=== PATIENT | male | born 1985 | race Hispanic/Latino ===

== ENCOUNTER 2017-01-23 10:26 | Observation (INO) | payer MEDICAID ==
[2017-01-22 10:18] VITALS: BMI 22.5
[2017-01-23] MEDS ORDERED: Liquid Adhesive TOP ONE (11:02)
[2017-01-23] MEDS ORDERED: Absorbable Gelatin Sponge Size 100 ONE (11:02)
[2017-01-23] MEDS ORDERED: Thrombin Topical 5,000 IU Spray Kit ONE (11:02)
[2017-01-23] MEDS ORDERED: Bupivacaine 0.5% Inj(30mL) ONE (11:02)
[2017-01-23] MEDS ORDERED: MethylPREDNISolone Depo 40 mg/ml Inj ONE (11:02)
[2017-01-23] MEDS ORDERED: Propofol 10 mg/ml Inj (20 ML) ONE ×5 (11:11→17:26)
[2017-01-23] MEDS ORDERED: Rocuronium 10 mg/ml (5 ml) ONE ×2 (11:25→15:41)
[2017-01-23] MEDS ORDERED: Midazolam 2 MG/2 ML VIAL ONE ×2 (11:25→14:13)
[2017-01-23] MEDS ORDERED: Succinylcholine 200 mg/10 ml Inj IV ONE ×2 (11:25→14:14)
[2017-01-23] MEDS ORDERED: Lactated Ringer's 1,000 ML IV ONE ×4 (11:40→20:45)
[2017-01-23] MEDS ORDERED: Desflurane Inhalation Anesthetic Liq (240 ml) ONE (14:15)
[2017-01-23] MEDS ORDERED: ePHEDrine 50 mg/ml Inj ONE ×2 (15:25→16:43)
[2017-01-23] MEDS ORDERED: Dexamethasone 4 mg/1 ml ONE (15:44)
[2017-01-23] MEDS ORDERED: Vancomycin 1 g Inj IVPB ONE (16:30)
[2017-01-23] MEDS ORDERED: Neostigmine Methylsulfate 2 MG/2 ML ML IV ONE (17:43)
[2017-01-23] MEDS ORDERED: HYDROmorphone 0.5 mg/0.5 ml ISec ONE ×2 (18:23→18:32)
[2017-01-23] MEDS ORDERED: Lactated Ringer's 1,000 ML IV SCH (18:28)
[2017-01-23] MEDS ORDERED: HYDROmorphone 0.5 mg/0.5 ml ISec IVP PRN (18:28)
--- NOTE | 2017-01-23 19:04 | CP.PCM.HP ---
History of Present Illness - History of Present Illness History of Present Illness: Hospitalist Admission H&P (Patient was seen and examined in the PAC Unit at 6: 40 PM 01/23/17) PMD: Dr. Cuevas Neurosurgeon : Dr. Padilla CODE STATUS: FULL CODE. Does NOT have a Living Will/Advance Directive. Designates Glen Joshi as his Health Care Proxy. CHIEF COMPLAINT: S/P Lumbar 4-5 Fusion 31 year old male (PMHx Depression) who is s/p Anterior Lumbar Interobody Fusion of L4-L5 by Neurosurgeon Dr. Padilla on 01/23/17. I was contacted by Dr. Padilla 's faculty i on call medical assistant Katherin for admission to Hospitalist Service. Currently upon FULL ROS there is NO chest pain, NO palpitations, NO SOB/Cough/ Wheezing, NO n/v/d/c (no recent black bloody stools), (+) Abdominal pain LLQ at the surgical site, NO new changes in vision/eye pain, NO new changes in hearing/ ear pain, NO edema, NO headache, (+) Right Big Toe Numbness PMHx: Depression PSHx: L4-L5 Laminectomy 2016, Shoulder Shoulder 2016, Proxmil Left Tibia Osteomyelitis ALL: NKDA or Food Allergies Medications: Cymbalta 120 mg PO 1x/day Social History: Physical Exercise Intructor, Lives Alone, NO tobacco, NO alcohol , NO illicit drugs Family History: Dad (Alcoholism), Mom (Healthy) Present on Admission - Present on Admission Any Indicators Present on Admission: Yes History of DVT/PE: No History of Uncontrolled Diabetes: No Urinary Catheter: No Review of Systems - Review of Systems Review of Systems: PLease see above Past Patient History - Past Medical History & Family History Past Medical History?: Yes Pertinent Family History: Please see above - Past Social History Smoking Status: Never Smoked - CARDIAC Hx Cardiac Disorders: No - PULMONARY Hx Respiratory Disorders: No - NEUROLOGICAL Hx Neurological Disorder: No - HEENT Hx HEENT Problems: No - RENAL Hx Chronic Kidney Disease: No - ENDOCRINE/METABOLIC Hx Endocrine Disorders: No - HEMATOLOGICAL/ONCOLOGICAL Hx Blood Disorders: No Hx Blood Transfusions: No - INTEGUMENTARY Hx Dermatological Problems: No - MUSCULOSKELETAL/RHEUMATOLOGICAL Hx Musculoskeletal Disorders: Yes Hx Back Pain: Yes Hx Falls: No Hx Osteomyelitis: Yes Hx Unsteady Gait: No - GASTROINTESTINAL Hx Gastrointestinal Disorders: No - GENITOURINARY/GYNECOLOGICAL Hx Genitourinary Disorders: No - PSYCHIATRIC Hx Psychophysiologic Disorder: Yes Hx Depression: Yes - SURGICAL HISTORY Hx Surgeries: Yes Other/Comment: discectomy;left leg surgery - ANESTHESIA Hx Anesthesia: Yes Hx Anesthesia Reactions: No Hx Malignant Hyperthermia: No Has any member of the family had a problem w/ anesthesia?: No Meds Allergies/Adverse Reactions: Allergies Allergy/AdvReac Type Severity Reaction Status Date / Time No Known Allergies Allergy Verified 01/22/17 09:27 Physical Exam - Constitutional Appears: Non-toxic, No Acute Distress - Head Exam Head Exam: ATRAUMATIC, NORMAL INSPECTION, NORMOCEPHALIC - Eye Exam Eye Exam: EOMI, Normal appearance, PERRL Pupil Exam: NORMAL ACCOMODATION, PERRL - ENT Exam ENT Exam: Normal Exam, Normal External Ear Exam, Normal Oropharynx Additional comments: Oral Mucosa and Nasal Turbinates are dry. - Neck Exam Neck exam: Positive for: Normal Inspection Additional comments: NO lymphadenopathy - Respiratory Exam Respiratory Exam: Clear to Auscultation Bilateral, NORMAL BREATHING PATTERN Additional comments: CTA B/L, NO R/R/W - Cardiovascular Exam Cardiovascular Exam: REGULAR RHYTHM, +S1, +S2 Additional comments: NS1 and NS2, NO M/R/G - GI/Abdominal Exam Additional comments: BS in all 4 quadrants are reduced Soft ND NO HSM Tenderness to palpation around surgical site LLQ but NO guarding/rebound tenderness - Extremities Exam Additional comments: NO edema Pulses are strong and equal in B/L UE and LE (Confirmed pulse in Right LE with Doppler) Capillary Refill is 2 seconds The Right Foot Toes appears to be slightly colder than the Left Foot Toes NO cyanosis - Neurological Exam Neurological exam: CN II-XII Intact Results - Vital Signs Recent Vital Signs: Last Vital Signs Temp 98.1 F 01/23/17 11:30 Pulse 61 01/23/17 11:30 Resp 18 01/23/17 11:30 BP 126/74 01/23/17 11:30 Pulse Ox 100 01/23/17 11:30 - Labs Labs: Laboratory Results - last 24 hr 01/23/17 01/23/17 11:09 11:16 Blood Type O POSITIVE Blood Type Confirm O POSITIVE Antibody Screen Negative BBK History Checked No verified bt Assessment & Plan (1) S/P spinal fusion Assessment and Plan: S/P Anterior Lumbary Interbody Fusion L4-L5 Dilaudid ALTO SINGER as per Neurosurgery LR at 100 ml/hour Neurosurgery Dr. Padilla Status: Acute (2) History of depression Assessment and Plan: Follows with Dr. Cuevas as an outpatient States he is on Cymbalta 120 mg PO 1x/day and is NO longer taking Xanax or Wellbutrin Status: Acute (3) Prophylactic measure Assessment and Plan: Protonix 40 mg IV 1x/day for GI Prophylaxis Bilateral SCDs for DVT Prophylaxis (NO anticoagulation as per Neurosurgery) Gluten Free Regular Diet Status: Acute
[2017-01-23 20:10] LABS: BASO % 0.1 % (0.0-2.0); EOS % 0.1 % (0.0-4.0); HEMOGLOBIN 13.4 g/dL (12.0-18.0); LYMPH # 0.5 K/uL (1.0-4.3); LYMPH % 4.1 % (20.0-40.0); MEAN CELL VOLUME 85.1 fl (80.0-94.0); MEAN CORPUSCULAR HEMOGLOBIN 27.1 pg (27.0-31.0); MEAN CORPUSCULAR HGB CONC 31.9 g/dL (33.0-37.0); MEAN PLATELET VOLUME 9.8 fl (7.2-11.7); MONO # 0.2 K/uL (0.0-0.8); MONO % 1.4 % (0.0-10.0); NEUT # 12.5 K/uL (1.8-7.0); NEUT % 94.3 % (50.0-75.0); PLATELET COUNT 171 K/uL (130-400); RBC 4.94 Mil/uL (4.40-5.90); RED CELL DISTRIBUTION WIDTH 13.5 % (11.5-14.5); WHITE BLOOD COUNT 13.3 K/uL (4.8-10.8)
[2017-01-23 20:23] LABS: ALB/GLOB RATIO 1.3 (1.0-2.1); ALBUMIN 3.6 g/dL (3.5-5.0); ALT/SGPT 46 U/L (21-72); AST/SGOT 34 U/L (17-59); BLOOD UREA NITROGEN 15 mg/dl (9-20); GFR AFRICAN-AMERICAN > 60; GFR NON-AFRICAN AMERICAN > 60
[2017-01-23 21:21] LABS: HYPOCHROMIC SLIGHT; LYMPHOCYTE 5 % (20-50); MONOCYTE 3 % (0-10); NEUTROPHIL 92 % (42-75); PLATELET ESTIMATE NORMAL (NORMAL); TOTAL CELLS COUNTED 100
[2017-01-23 21:22] LABS: LARGE PLATELETS PRESENT
[2017-01-24 05:58] LABS: HEMOGLOBIN 12.6 g/dL (12.0-18.0); LYMPH # 0.6 K/uL (1.0-4.3); MEAN CELL VOLUME 84.1 fl (80.0-94.0); MEAN CORPUSCULAR HEMOGLOBIN 27.7 pg (27.0-31.0); MEAN CORPUSCULAR HGB CONC 32.9 g/dL (33.0-37.0); MEAN PLATELET VOLUME 10.1 fl (7.2-11.7); MONO # 0.6 K/uL (0.0-0.8); MONO % 4.9 % (0.0-10.0); NEUT # 11.7 K/uL (1.8-7.0); NEUT % 90.1 % (50.0-75.0); PLATELET COUNT 169 K/uL (130-400); RBC 4.53 Mil/uL (4.40-5.90); RED CELL DISTRIBUTION WIDTH 13.2 % (11.5-14.5)
[2017-01-24 06:03] LABS: ALB/GLOB RATIO 1.3 (1.0-2.1); ALBUMIN 3.3 g/dL (3.5-5.0); ALT/SGPT 43 U/L (21-72); AST/SGOT 35 U/L (17-59); BLOOD UREA NITROGEN 14 mg/dl (9-20); CALCIUM 8.1 mg/dL (8.4-10.2); GFR AFRICAN-AMERICAN > 60; GFR NON-AFRICAN AMERICAN > 60
[2017-01-24] MEDS: Lactated Ringer's 1,000 ML IV SCH ×2 (07:03→07:52)
[2017-01-24 08:42] VITALS: RESP 20
[2017-01-24] MEDS ORDERED: Oxycodone/Acetaminophen 5/325 mg Tab PO PRN (08:48)
--- NOTE | 2017-01-24 10:17 | CP.PCM.DIS ---
Provider - Provider Date of Admission: 01/23/17 18:41 Attending physician: Garry Ontiveros MD Primary care physician: Abhi Padilla MD Time Spent in preparation of Discharge (in minutes): 30 Hospital Course - Lab Results Lab Results: Most Recent Lab Values WBC 13.0 K/uL (4.8-10.8) H 01/24/17 04:45 RBC 4.53 Mil/uL (4.40-5.90) 01/24/17 04:45 Hgb 12.6 g/dL (12.0-18.0) 01/24/17 04:45 Hct 38.1 % (35.0-51.0) 01/24/17 04:45 MCV 84.1 fl (80.0-94.0) 01/24/17 04:45 MCH 27.7 pg (27.0-31.0) 01/24/17 04:45 MCHC 32.9 g/dL (33.0-37.0) L 01/24/17 04:45 RDW 13.2 % (11.5-14.5) 01/24/17 04:45 Plt Count 169 K/uL (130-400) 01/24/17 04:45 MPV 10.1 fl (7.2-11.7) 01/24/17 04:45 Neut % (Auto) 90.1 % (50.0-75.0) H 01/24/17 04:45 Lymph % (Auto) 5.0 % (20.0-40.0) L 01/24/17 04:45 Spink % (Auto) 4.9 % (0.0-10.0) 01/24/17 04:45 Eos % (Auto) 0.0 % (0.0-4.0) 01/24/17 04:45 Baso % (Auto) 0.0 % (0.0-2.0) 01/24/17 04:45 Neut # 11.7 K/uL (1.8-7.0) H 01/24/17 04:45 Lymph # 0.6 K/uL (1.0-4.3) L 01/24/17 04:45 Spink # 0.6 K/uL (0.0-0.8) 01/24/17 04:45 Eos # 0.0 K/uL (0.0-0.7) 01/24/17 04:45 Baso # 0.0 K/uL (0.0-0.2) 01/24/17 04:45 Neutrophils % (Manual) 92 % (42-75) H 01/23/17 20:55 Lymphocytes % (Manual) 5 % (20-50) L 01/23/17 20:55 Monocytes % (Manual) 3 % (0-10) 01/23/17 20:55 Platelet Estimate Normal (NORMAL) 01/23/17 20:55 Large Platelets Present 01/23/17 20:55 Hypochromasia (manual) Slight 01/23/17 20:55 Sodium 137 mmol/l (132-148) 01/24/17 04:45 Potassium 4.4 MMOL/L (3.6-5.0) 01/24/17 04:45 Chloride 100 mmol/L (98-107) 01/24/17 04:45 Carbon Dioxide 30 mmol/L (22-30) 01/24/17 04:45 Anion Gap 12 (10-20) 01/24/17 04:45 BUN 14 mg/dl (9-20) 01/24/17 04:45 Creatinine 1.0 mg/dL (0.8-1.5) 01/24/17 04:45 Est GFR ( Amer) > 60 01/24/17 04:45 Est GFR (Non-Af Amer) > 60 01/24/17 04:45 Random Glucose 106 mg/dL (75-110) 01/24/17 04:45 Calcium 8.1 mg/dL (8.4-10.2) L 01/24/17 04:45 Total Bilirubin 0.7 mg/dl (0.2-1.3) 01/24/17 04:45 AST 35 U/L (17-59) 01/24/17 04:45 ALT 43 U/L (21-72) 01/24/17 04:45 Alkaline Phosphatase 46 U/L (38-126) 01/24/17 04:45 Total Protein 5.9 G/DL (6.3-8.2) L 01/24/17 04:45 Albumin 3.3 g/dL (3.5-5.0) L 01/24/17 04:45 Globulin 2.6 gm/dL (2.2-3.9) 01/24/17 04:45 Albumin/Globulin Ratio 1.3 (1.0-2.1) 01/24/17 04:45 Blood Type O POSITIVE 01/23/17 11:09 Blood Type Confirm O POSITIVE 01/23/17 11:16 Antibody Screen Negative 01/23/17 11:09 BBK History Checked No verified bt 01/23/17 11:09 - Hospital Course Hospital Course: 31 year old male (PMHx Depression) who is s/p Anterior Lumbar Interobody Fusion of L4-L5 by Neurosurgeon Dr. Padilla on 01/23/17. Discussed with Dr. Padilla this morning, patient with good urine output. NV intact. To follow up with Dr. Padilla on Thursday. Instructions to wear brace/ corset, not when sleeping. May remove op site dressing tomorrow, keep steri strips in place. Change to PO percocet, 5 day supply given. (1) S/P spinal fusion S/P Anterior Lumbary Interbody Fusion L4-L5 Good urine output, NV intact. Dilaudid RIVETER PNEUMATIC as per Neurosurgery, Change to PO percocet. LR at 100 ml/hour Neurosurgery Dr. Padilla (2) History of depression Follows with Dr. Cuevas as an outpatient States he is on Cymbalta 120 mg PO 1x/day and is NO longer taking Xanax or Wellbutrin Status: Acute Discharge Exam - Head Exam Head Exam: ATRAUMATIC, NORMAL INSPECTION, NORMOCEPHALIC - Eye Exam Eye Exam: EOMI, Normal appearance, PERRL Pupil Exam: NORMAL ACCOMODATION - ENT Exam ENT Exam: Mucous Membranes Moist, Normal Oropharynx - Neck Exam Neck exam: Full Rom, Normal Inspection - Respiratory Exam Respiratory Exam: Clear to PA & Lateral, NORMAL BREATHING PATTERN. absent: Rhonchi, Wheezes - Cardiovascular Exam Cardiovascular Exam: RRR, +S1, +S2 - GI/Abdominal Exam GI & Abdominal Exam: Normal Bowel Sounds, Soft, Unremarkable. absent: Mass, Organomegaly - Extremities Exam Extremities exam: normal capillary refill, pedal pulses present - Back Exam Back exam: absent: CVA tenderness (L), CVA tenderness (R) - Neurological Exam Neurological exam: Alert, Oriented x3 - Psychiatric Exam Psychiatric exam: Normal Affect, Normal Mood - Skin Skin Exam: Dry, Warm Discharge Plan - Discharge Medications Prescriptions: DULoxetine [Cymbalta] 120 mg PO DAILY #30 Gabapentin [Neurontin] 200 mg PO TID #90 cap oxyCODONE/Acetaminophen [Percocet 5/325 mg Tab] 1 tab PO Q6 #20 tab - Follow Up Plan Condition: GOOD Disposition: HOME/ ROUTINE Additional Instructions: Office of Dr. Padilla will call patient on Thursday. Instructions to wear brace/ corset, not when sleeping. May remove op site dressing tomorrow, keep steri strips in place. Change to PO percocet, 5 day supply given. Resume activity as tolerated. Resume diet. Return to any ER if condition worsens. Referrals: Abhi Padilla MD [Primary Care Provider] -
[2017-01-24 10:49] LABS: BANDS 2 % (0-2); LYMPHOCYTE 4 % (20-50); MONOCYTE 6 % (0-10); NEUTROPHIL 88 % (42-75); TOTAL CELLS COUNTED 100
[2017-01-24 10:50] LABS: ANISOCYTOSIS MODERATE; MICROCYTOSIS SLIGHT; PLATELET ESTIMATE NORMAL (NORMAL)
[2017-01-24 10:51] LABS: BURR CELLS SLIGHT; LARGE PLATELETS PRESENT; OVALOCYTES MODERATE
[2017-01-24 10:52] LABS: POIKILOCYTOSIS SLIGHT
[2017-01-24] MEDS: Oxycodone/Acetaminophen 5/325 mg Tab PO PRN ×2 (13:07→17:05)
[2017-01-24 16:15] VITALS: BP 116/70; PULSE 72; TEMP 99.1; O2SAT 93
--- NOTE | 2017-01-28 08:24 | RAD ---
PROCEDURE: Intraoperative Fluoroscopy. HISTORY: Lumbar fusion FINDINGS: Fluoroscopic assistance was provided. Please refer to the operative report for additional details.
== END 2017-01-24 19:11 | disposition home or self-care (01) ==
LOC: H.OPSURG 10:26 → H.MEDSURG1 18:41
PROVIDERS: ADMIT Family Medicine; ATTEND Family Medicine
DX: M47.26 Other spondylosis with radiculopathy, lumbar region (principal); M51.16 Intervertebral disc disorders with radiculopathy, lumbar region; F32.9 Major depressive disorder, single episode, unspecified